=== PATIENT | male | born 1960 | race Caucasian/White ===

== ENCOUNTER 2018-03-15 03:31 | Inpatient (IN) ==
[2018-03-15] MEDS ORDERED: Acetaminophen 325 MG Tablet PO PRN (09:17)
[2018-03-15] MEDS ORDERED: Bisacodyl 10 MG Supp RECTAL PRN (09:17)
[2018-03-15] MEDS ORDERED: Aluminum/Magnesium/Simethacone Susp 30 ML UDC PO PRN (09:17)
[2018-03-15] MEDS ORDERED: LORazepam 1 MG Tablet PO PRN (10:00)
[2018-03-15] MEDS: Sertraline 100 MG Tablet PO SCH (12:38)
--- NOTE | 2018-03-15 12:39 | P.HPPSY ---
Provisional Diagnosis Admission Date: March 15, 2018 07:07 Adjustment disorder with mixed anxiety and depressed mood. [place].: Adjustment disorder with mixed depressed mood and anxiety Competence Certification of Person's Competence To Provide Express and Informed Consent I have personally examined Arvind Marquez, a person being served at [facility] on, March 15, 2018 1227. Express and informed consent means consent voluntarily given in writing, by a competent person, after sufficient explanation and disclosure of the subject matter involved to enable the person to make a knowing and willful decision without any element of force, fraud, deceit, duress, or other form of constraint or coercion. This person is 18 years of age or older, is not now known to be incompetent to consent to treatment with a guardian advocate, and does not have a health care surrogate or proxy currently making medical treatment decisions. I have found this person to be one of the following: [] Competent to provide express and informed consent, as defined above, for voluntary admission to this facility and is competent to provide express and informed consent for treatment. He/she has the consistent capacity to make well reasoned, willful, and knowing decisions concerning his or her medical or mental health treatment. The person fully and consistently understands the purpose of the admission for examination/placement and is fully capable of personally exercising all rights assured [place] [] Incompetent to provide express and informed consent to voluntary admission, and this is incompetent to provide express and informed consent to treatment. The person must be transferred to involuntary status and a petition for a guardian advocate filed with the Circuit Court. [] Refusing to provide express and informed consent to voluntary admission but is competent to provide express and informed consent for treatment. The person must be discharged or transferred to involuntary status. Form shall be completed within 24 hours of a person's arrival at the receiving facility and filed in the clinical record of each person: 1. Admitted on a voluntary basis 2. Permitted to provide express and informed consent to his/her own treatment 3. Allowed to transfer from involuntary to voluntary status 4. Prior to permitting a person to consent to his or her own treatment after having been previously found incompetent to consent to treatment. History of Present Illness Capacity: Has capacity Chief Complaint: Suicidal ideation with plan History of Present Illness: March 15, 2018 HPI: Patient is a 57-year-old [place] vet who called the [employer] suicide line stating that he had a gun loaded and is ready to "eat the barrel". Patient denies any previous psychiatric history although he has been treated with Zoloft for anxiety. Patient has not sure what dosage or for how long. He denies that Zoloft was used for depression. 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 He spilled some hot lead on his right hand for several weeks to use the hand to work. He now complains that he has no job prospects and cannot pay his bills. Patient said that but for a call to his body and then the [employer] hotline he would have committed suicide. Apparently, his body called the Electrical Project Manager's office who [place] acted the patient and transported him to the hospital emergency department. - Inpatient Certification I certify that the inpatient services were ordered in accordance with Medicare regulations governing the order. This includes certification that hospital inpatient services are reasonable and necessary and in the case of services not specified as inpatient-only under 42 CFR 419.22(n), that they are appropriately provided as inpatient services in accordance to with the 2-midnight benchmark under 43 CFR 412.3(e) I certify that inpatient psychiatric hospital services are medically necessary. Evaluation and treatment and/or diagnostic testing are expected to improve the patient's condition. The patient needs on a daily basis, active treatment furnished directly by or requiring the supervision of inpatient psychiatric facility personnel. PMFSH - History History Provided By: Patient - Tobacco History Second Hand Smoke Exposure: Yes Tobacco Use In Past 30 Days: Yes Smoking Status: Current every day smoker Tobacco Type: Cigarettes - Alcohol History How Often Do You Have a Drink Containing Alcohol: Monthly or less - Substance Use History Substance History: No History of Abuse - Immunization History Tetanus Immunization: Never Vaccinated Hx Influenza Vaccine This Season: No Medications and Allergies Active Medications: Active Medications Acetaminophen (Tylenol) 650 mg PO Q4H PRN PRN Reason: Pain 1-5 or Temp >101F Al Hydrox/Mg Hydrox/Simethicone (Mag-Al Plus Susp Liq) 30 ml PO Q6H PRN PRN Reason: DYSPEPSIA Al Hydroxide/Mg Hydroxide (Milk Of Magnesia Liq) 30 ml PO Q12H PRN PRN Reason: Mild Constipation Bisacodyl (Dulcolax Supp) 10 mg RECTAL DAILY PRN PRN Reason: SEVERE CONSITIPATION Diphenhydramine HCl (Benadryl) 50 mg PO Q6H PRN PRN Reason: For mild anxiety and/or EPS Diphenhydramine HCl (Benadryl) 50 mg PO HS PRN PRN Reason: INSOMNIA Diphenhydramine HCl (Benadryl Inj) 50 mg IM HS PRN PRN Reason: INSOMNIA Diphenhydramine HCl (Benadryl Inj) 50 mg IM Q6H PRN PRN Reason: For mild anxiety and/or EPS Lactulose (Lactulose Liq) 30 ml PO DAILY PRN PRN Reason: SEVERE CONSITIPATION Lorazepam (Ativan) 1 mg PO Q6H PRN PRN Reason: MODERATE TO SEVERE ANXIETY Lorazepam (Ativan Inj) 1 mg IM Q6H PRN PRN Reason: MODERATE TO SEVERE ANXIETY Quetiapine Fumarate (Seroquel) 100 mg PO HS CARSON Senna/Docusate Sodium (Stephanie-Colace) 1 tab PO BID CARSON Sennosides (Senokot) 17.2 mg PO Q12H PRN PRN Reason: Moderate Constipation Sertraline HCl (Zoloft) 100 mg PO DAILY CARSON Allergies Allergy/AdvReac Type Severity Reaction Status Date / Time morphine Allergy Hives Verified 03/15/18 08:15 Home Medications Medication Instructions Recorded Confirmed Type Eliquis 03/15/18 History Nitrostat See Label Instructions .ROUTE 03/15/18 History .COMPLEX PRN Zoloft PO DAILY 03/15/18 History carvedilol See Label Instructions .ROUTE 03/15/18 History .COMPLEX digoxin mg PO DAILY 03/15/18 History gabapentin 600 mg PO TID 03/15/18 History omeprazole PO BID 03/15/18 History trazodone PO HS 03/15/18 History Exam Vital signs: Vital Signs 03/15/18 12:23 Temperature 98.0 F Respiratory Rate 18 Blood Pressure 132/82 Pulse Oximetry 97 Intake & Output 03/14/18 03/15/18 03/15/18 18:59 06:59 18:59 Weight 86.9 kg Other: Weight On Admission 86.9 kg Mental Status Examination Appearance: Appropriate Consciousness: Alert, Vigilant Orientation: x4 Motor Activity: Normal gait Speech: Rapid Language: Adequate Fund of Knowledge: Adequate Attention and Concentration: Adequate Memory: Unremarkable Mood: Anxious, Irritable Affect: Irritable Thought Process & Associations: Intact Thought Content: Appropriate Hallucination Type: None Delusion Type: None Suicidal Ideation: Yes Suicidal Plan: Yes Suicidal Intention: Yes Insight: Fair Judgment: Adequate Assessment and Plan - Plan Plan: Estimated LOS: [] days March 15, 2018 Patient will be admitted to the inpatient service and treated for problems adjusting to his financial problem and dealing with his anxiety and depressed mood. Patient seems calmer since admission to the hospital and does want help. Patient will be started on Zoloft 100 mg daily and Seroquel 100 mg at at bedtime. Patient has given consent and is competent to do so. Justification for Continued Inpatient Stay: March 15, 2018 Patient is depressed with high level of perturbation and the likelihood of his completing a suicide is serious. Without inpatient hospitalization the patient would decompensate further.
[2018-03-15] MEDS: Gabapentin 300 MG Capsule PO SCH (18:42)
[2018-03-15] MEDS: Senna/Docusate Sodium 8.6/50 MG Tablet PO SCH (21:47)
[2018-03-15] MEDS: Carvedilol 12.5 MG Tablet PO SCH (21:47)
[2018-03-15] MEDS: Pantoprazole Sodium 20 MG DR Tablet PO SCH (21:47)
[2018-03-15] MEDS: QUEtiapine 100 MG Tablet PO SCH (21:47)
[2018-03-16] MEDS: Gabapentin 300 MG Capsule PO SCH ×3 (08:41→18:35)
[2018-03-16] MEDS: Digoxin 125 MCG Tablet PO SCH (08:42)
[2018-03-16] MEDS: Carvedilol 12.5 MG Tablet PO SCH ×2 (08:42→20:36)
[2018-03-16] MEDS: Pantoprazole Sodium 20 MG DR Tablet PO SCH ×2 (08:42→20:36)
[2018-03-16] MEDS: Sertraline 100 MG Tablet PO SCH (08:43)
[2018-03-16] MEDS: Senna/Docusate Sodium 8.6/50 MG Tablet PO SCH ×2 (09:00→20:36)
[2018-03-16 10:09] LABS: Calcium 8.8 mg/dL (8.5-10.1); Carbon Dioxide 33.3 meq/L (21.0-32.0)
[2018-03-16 10:13] LABS: Chol/HDL Ratio 4.64 Ratio; HDL Cholesterol 44.6 mg/dL (40.0-60.0)
[2018-03-16 12:43] LABS: Hemoglobin A1c 5.3 % (4.3-6.0)
--- NOTE | 2018-03-16 18:50 | P.PNPSY ---
Subjective Chief Complaint: Suicidal ideation with plan Remarks: Reviewed electronic medical records and discussed case with staff. Follow-up was conducted in the hallway with SAMIRA Phelps present. His nurse reports that he has been doing well and has been cooperative and compliant with his care. The patient states "I do not sleep too well I never have". Reports that his appetite's been "really good". He reports that his moods been actually pretty good. He states that he had a good conversation with his daughter via phone today. He denies any side effects from his medications. He does complain of night sweats stating that is been going from cold to hot recently. I reviewed his vital signs and all are within normal limits therefore, I will not order any further workup at this time. Mental Status Examination Appearance: Appropriate Consciousness: Alert, Vigilant Orientation: x4 Motor Activity: Normal gait Speech: Rapid Language: Adequate Fund of Knowledge: Adequate Attention and Concentration: Adequate Memory: Unremarkable Mood: Anxious, Irritable Affect: Irritable Thought Process & Associations: Intact Thought Content: Appropriate Hallucination Type: None Delusion Type: None Suicidal Ideation: Yes Suicidal Plan: Yes Suicidal Intention: Yes Insight: Fair Judgment: Adequate Assessment and Plan - Assessment (1) Persistent mood [affective] disorder, unspecified Code(s): F34.9 - Persistent mood [affective] disorder, unspecified Status: Acute - Plan Plan: Patient will be reevaluated by the attending psychiatrist. Continue with current treatment plan. Justification for Continued Inpatient Stay: Moving this patient to a less restrictive environment would likely result in decompensation.
[2018-03-16] MEDS: QUEtiapine 100 MG Tablet PO SCH (20:36)
[2018-03-17] MEDS: Sertraline 100 MG Tablet PO SCH (09:13)
[2018-03-17] MEDS: Carvedilol 12.5 MG Tablet PO SCH (09:13)
[2018-03-17] MEDS: Gabapentin 300 MG Capsule PO SCH ×2 (09:13→13:09)
[2018-03-17] MEDS: Senna/Docusate Sodium 8.6/50 MG Tablet PO SCH (09:13)
[2018-03-17] MEDS: Pantoprazole Sodium 20 MG DR Tablet PO SCH (09:13)
[2018-03-17] MEDS: Digoxin 125 MCG Tablet PO SCH (09:18)
--- NOTE | 2018-03-17 12:13 | P.DSPSY ---
Psychiatry Discharge Summary Inpatient Psychiatric care?: Yes Advance Directives: No Mental Health Advance Directive: No Health Care Proxy: No - Admission Admission Date: March 15, 2018 07:07 - Admission Diagnosis (1) Persistent mood [affective] disorder, unspecified Code(s): F34.9 - Persistent mood [affective] disorder, unspecified Brief History: March 15, 2018 HPI: Patient is a 57-year-old [place] vet who called the [employer] line stating that he had a gun loaded and is ready to "eat the barrel". Patient denies any previous psychiatric history although he has been treated with Zoloft for anxiety. Patient has not sure what dosage or for how long. He denies that Zoloft was used for depression. 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 He spilled some hot lead on his right hand for several weeks to use the hand to work. He now complains that he has no job prospects and cannot pay his bills. Patient said that but for a call to his body and then the [employer] he would have committed suicide. Apparently, his body called the Law Enforcement Instructor's office who [place] acted the patient and transported him to the hospital emergency department. Tobacco Use In Past 30 Days: Yes How Often Do You Have a Drink Containing Alcohol: Monthly or less Hospital Course: Hospital course: Patient was admitted to a locked, inpatient psychiatric unit. Appropriate precautions were in place throughout patient's hospital stay. Patient was seen and examined on the unit by psychiatry and also visited by counselor. Psychotropic medications were adjusted were well tolerated. There was a good response to to inpatient treatment plan noted by nursing and provider observations, and the patient reported improvements in mood, anxiety, and there was no evidence of any suicidality or homicidality at time of discharge. Psychiatric follow-up as arranged by counselor. Patient is also to follow up with primary care. I have counseled the patient to abstain from substances of abuse including cannabis and have counseled patient to return to the psychiatric emergency room for any concerning symptoms as part of a general safety plan. - Discharge Discharge Date: 03/17/18 - Discharge Diagnosis (1) Major depressive disorder, recurrent, moderate Code(s): F33.1 - Major depressive disorder, recurrent, moderate Status: Acute Discharge Disposition: Home - Discharge Instructions Discharge Diet: Regular Diet - Discharge Time > 30 minutes Mental Status Examination Appearance: Appropriate Consciousness: Alert Orientation: x4 Motor Activity: Normal gait Speech: Unremarkable Language: Adequate Fund of Knowledge: Adequate Attention and Concentration: Adequate Memory: Unremarkable Mood: Sad Affect: Appropriate Thought Process & Associations: Intact Thought Content: Appropriate Hallucination Type: None Delusion Type: None Suicidal Ideation: No Suicidal Plan: No Suicidal Intention: No Homicidal Ideation: No Homicidal Plan: No Homicidal Intention: No Insight: Fair Judgment: Adequate Discharge/Advance Care Plan - Results Vital Signs: Last Vital Signs Temp 97.8 F 03/17/18 06:22 Pulse 67 03/17/18 06:22 Resp 18 03/17/18 06:22 BP 117/90 03/17/18 06:22 Pulse Ox 96 03/17/18 06:22 Lab Results: Abnormal Lab Results 03/16/18 09:11 Hemoglobin A1c 5.3 Laboratory Results Hemoglobin A1c 5.3 % (4.3-6.0) 03/16/18 09:11 Triglycerides 123 mg/dL (42-150) 03/16/18 09:11 Cholesterol 207 mg/dL (120-200) H 03/16/18 09:11 LDL Cholesterol, Calc 138 mg/dL (0-99) H 03/16/18 09:11 HDL Cholesterol 44.6 mg/dL (40.0-60.0) 03/16/18 09:11 Summary of Procedures: None ordered Pending Results: None - Medications Number of antipsychotic medications at discharge: 1 - Discharge Care Plan Goals to Promote Your Health: * To prevent worsening of your condition and complications * To maintain your health at the optimal level Directions to Meet Your Goals: Take your medications as prescribed Follow your dietary instruction Follow activity as directed Keep your appointments as scheduled Take your immunizations and boosters as scheduled If your symptoms worsen call your PCP, if no PCP go to Urgent Care Center or Emergency Room For 08/10 questions related to your inpatient stay or results of tests pending at discharge, please contact Dr. Sherif Diaz MD at Smoking is Dangerous to Your Health. Avoid second hand smoking
== END 2018-03-17 14:10 | disposition home or self-care (01) | DRG 885 ==
LOC: H270 07:07
PROVIDERS: ADMIT Psychiatry & Neurology Psychiatry; ATTEND Psychiatry & Neurology Psychiatry
CPT/HCPCS: Q0163